=== PATIENT | female | born 1985 | race African-American/Black ===

== ENCOUNTER 2018-11-11 20:28 | Emergency (ER) | payer BC, OTHER ==
[~2018-11-11] VITALS: Ht 162.6 cm; Wt 111.1 kg
[2018-11-11 20:28] VITALS: BP_SYST 114
--- NOTE | 2018-11-11 20:36 | NUR ---
Patient to ER H1 to gown for evaluation. Side rails up.
--- NOTE | 2018-11-11 20:37 | NUR ---
Patient complaining of right foot pain x 1 day after playing soccer yesterday. Pain 07/02. No other complaints/injuries per patient or as noted. Will continue to monitor.
--- NOTE | 2018-11-11 20:45 | NUR ---
ER MD LUNA AT BEDSIDE EXAMINING PATIENT.
[2018-11-11 21:31] VITALS: BP_SYST 114
--- NOTE | 2018-11-11 21:31 | NUR ---
Patient given written and verbal discharge instructions and verbalizes understanding. ER MD Guzman discussed with patient the results and treatment provided. Patient in stable condition. ID arm band removed. Rx of Naprosyn given. Patient educated on pain management and to follow up with PMD. Pain Scale 2/10. Opportunity for questions provided and answered. Medication side effect fact sheet provided.
== END 2018-11-11 21:31 | disposition home or self-care (01) ==
LOC: SED 20:28
DX: S90.31XA Contusion of right foot, initial encounter (principal); W50.0XXA Accidental hit or strike by another person, initial encounter; Y93.66 Activity, soccer; Y92.89 Other specified places as the place of occurrence of the external cause; Y99.8 Other external cause status
CPT/HCPCS: 99283